=== PATIENT | female | born 1965 | race Caucasian/White ===

== ENCOUNTER 2023-07-12 13:06 | Emergency (ER) | payer OTHER ==
[2023-07-12] VITALS (13 sets, daily range): BP systolic 109–163; BP diastolic 57–115
[~2023-07-12] VITALS: Ht 165.1 cm; Wt 69.3 kg
[2023-07-12] MEDS ORDERED: KETOROLAC TROMETHAMINE 30 MG/ML SDV IM ONE (14:10)
[2023-07-12] MEDS ORDERED: ORPHENADRINE CITRATE 30 MG/ML AMP IM ONE (14:10)
[2023-07-12] MEDS ORDERED: NAPROXEN500 MG PO (17:41)
[2023-07-12] MEDS ORDERED: CYCLOBENZAPRINE10 MG PO (17:41)
== END 2023-07-12 17:50 | disposition home or self-care (01) | DRG 552 ==
LOC: ED 13:06
DX: M54.2 Cervicalgia (principal); I10 Essential (primary) hypertension; V49.50XA Passenger injured in collision with unspecified motor vehicles in traffic accident, initial encounter